=== PATIENT | male | born 1960 | race Hispanic/Latino ===

== ENCOUNTER → 2021-09-25 | Day surgery (SDC) | payer SELFPAY ==
[~2021-09-25] MED LIST: HYDRALAZINE HCL 20 MG/ML VIAL ONE; OR PHACO EYE KIT ONE; PREOP PHACO EYE KIT ONE
[2021-09-25 16:30] VITALS: BP 170/90
== END | disposition home or self-care (01) ==
LOC: OR 11:42
PROVIDERS: ATTEND Ophthalmology
DX: H25.11 Age-related nuclear cataract, right eye (principal); E66.01 Morbid (severe) obesity due to excess calories; Z01.812 Encounter for preprocedural laboratory examination; Z20.822 Contact with and (suspected) exposure to COVID-19
CPT/HCPCS: 0223U; 36415; 66984; J0360; V2632